=== PATIENT | female | born 1945 | race Caucasian/White ===

== ENCOUNTER 2017-05-11 09:45 | Outpatient (CLI) | payer MEDICARE, OTHER ==
[2017-05-11 12:21] LABS: #Basophils 0.1 thou/uL (0.0-0.2); #Eosinphils 0.1 thou/uL (0.0-0.7); #Lymphocytes 1.2 thou/uL (1.20-3.40); #Monocytes 0.5 thou/uL (0.11-0.59); #Neutrophils 2.9 thou/uL (1.40-6.50); %Basophils 1.1 % (0.0-1.0); %Eosinophils 2.8 % (0.0-10.0); %Lymphocytes 25.1 % (21.0-51.0); %Monocytes 10.9 % (0.0-10.0); Red Blood Cell (RBC) Count 4.46 mill/uL (4.20-5.40); White Blood Cell (WBC) Count 4.9 thou/uL (4.8-10.8)
[2017-05-11 12:54] LABS: ALT (SGPT) 15 U/L (8-55); AST (SGOT) 14 U/L (5-34); Alkaline Phosphatase 76 U/L (40-150); Anion Gap 8 mmol/L (10-20); BUN (Urea Nitrogen) 12 mg/dL (9.8-20.1); Bilirubin, Total 0.5 mg/dL (0.2-1.2); Calc. Creatinine Clearance 0 mL/min (70-130); Calcium 9.6 mg/dL (7.8-10.44); Carbon Dioxide 32 mmol/L (23-31); Chloride 104 mmol/L (98-107); Estimated GFR-MDRD 72; Globulin 3.4 g/dL (2.4-3.5); Protein, Total 7.4 g/dL (6.0-8.3)
== END 2017-05-11 09:46 | disposition home or self-care (01) ==
LOC: LABBT 09:45
PROVIDERS: ATTEND Surgery
DX: Z01.818 Encounter for other preprocedural examination (principal); S70.11XA Contusion of right thigh, initial encounter
CPT/HCPCS: 80053; 85025; 93005; 93010

== ENCOUNTER 2017-05-12 06:01 | Day surgery (SDC) | payer MEDICARE, OTHER ==
[2017-05-11 10:09] VITALS: BMI 36.6
[2017-05-12] MEDS ORDERED: Bupivacaine/Epinephrine 0.25% 30 ML VIAL ONE (06:29)
[2017-05-12] MEDS ORDERED: Levofloxacin 500 mg/D5W 100 ml Premix Bag ONE (06:50)
[2017-05-12] MEDS ORDERED: Fentanyl 100 MCG/2 ML VIAL ONE (07:06)
[2017-05-12] MEDS ORDERED: Midazolam HCl 2 mg/2 ml Vial ONE (07:06)
--- NOTE | 2017-05-12 07:22 | HP ---
CHIEF COMPLAINT: Chronic hematoma right leg. HISTORY: The patient is a 72-year-old female who fell down stairs in December. She developed a hemato ma in the lateral right thigh. It has persisted. No pain. She is here for evacuation. PAST MEDICAL HISTORY: Significant for hypertension, vitamin D deficiency, chronic headaches, mitral and tricuspid regurgitation. PAST SURGICAL HISTORY: Cholecystectomy in 1969, knee replacement bilateral in 2007, soft tissue chente t in 2010, colonoscopy in 2010. MEDICATIONS: Xalatan, vitamin D, flaxseed, calcium, vitamin D, B12, Zizol, Flonase, carvedilol. ALLERGIES: PENICILLIN, SULFA. FAMILY HISTORY: Father at 95. Mother at 79 of colon cancer. SOCIAL HISTORY: She is . No tobacco, occasional alcohol. PHYSICAL EXAMINATION: VITAL SIGNS: Height 5 foot 5, weight 221. Body mass index 36.7. Blood pressure 155/89, pulse 66. GENERAL: Well-developed, well-nourished female in no apparent distress. HEENT: Unremarkable. LUNGS: Clear. HEART: Regular rate and rhythm. ABDOMEN: Soft, nontender, good bowel sounds. EXTREMITIES: 8 x 10 cm, nontender mass lateral right thigh. ASSESSMENT: Persistent hematoma in thigh. PLAN: Incision and drainage with irrigation.
--- NOTE | 2017-05-12 11:37 | OP ---
DATE OF PROCEDURE: 05/12/2017 PREOPERATIVE DIAGNOSIS: Chronic hematoma of right lateral thigh. SURGEON: Pablo Zuniga M.D. PROCEDURE: Incision and drainage of subfascial hematoma. INDICATIONS: This is a 72-year-old female who fell and developed a hematoma of her right thigh. It persisted. She came in about 6 weeks ago and we had scheduled a drain to drain this thing, but for u nknown reasons, she waited until now. FINDINGS: There was probably like 70 mL of straw colored serous fluid within this subfascial fluid c ollection. PROCEDURE IN DETAIL: After informed consent was obtained, the patient was taken to the operating deni m and given general mask anesthesia, placed in the supine position. Her thigh was prepped and draped in the usual fashion. Local anesthesia infiltrated subcutaneously and deep. A linear incision was performed. The subcu divided sharply. She is morbidly obese and it was quite a ways down there, in fact, at first I started thinking that there was nothing there other than maybe a lipoma, so I aspira roldan deep and sure enough got the straw fluid, so I had to go beneath the fascia to get into this flui d collection. It was clear straw colored fluid about 70 mL removed. The cavity was thoroughly irrig ated with pulse production planner scheduler. I really did not see any residual thrombus. A drain was placed and broug ht out through a separate stab wound distally placed in the cavity. Hemostasis was assured. The fas jasmeet closed with a running 2-0 Vicryl. Subcutaneous reapproximated with interrupted 3-0 Vicryl and sk in closed with a running subcuticular 4-0 Vicryl. Dermabond applied. The patient tolerated the proc edure well and transferred to recovery in good condition. Sponge and needle count verified correct x 2.
[2017-05-12] MEDS ORDERED: Propofol 200 MG/20 ML VIAL ONE (14:44)
[2017-05-12] MEDS ORDERED: Ondansetron HCl/PF 4 MG/2 ML Vial ONE (14:44)
[2017-05-12] MEDS ORDERED: Ketorolac Tromethamine 30 MG/ML VIAL ONE (14:44)
== END 2017-05-12 10:10 | disposition home or self-care (01) ==
LOC: SDC 06:01
PROVIDERS: ATTEND Surgery
PROC: 0J9L3ZX Drainage of Right Upper Leg Subcutaneous Tissue and Fascia, Percutaneous Approach, Diagnostic (ICD-10-PCS; principal; 2017-05-12)
DX: T14.8XXA Other injury of unspecified body region, initial encounter (principal); Z88.2 Allergy status to sulfonamides; Z88.0 Allergy status to penicillin; Z90.49 Acquired absence of other specified parts of digestive tract; Z79.899 Other long term (current) drug therapy; Z68.36 Body mass index [BMI] 36.0-36.9, adult; E66.01 Morbid (severe) obesity due to excess calories; Z96.653 Presence of artificial knee joint, bilateral; Z98.890 Other specified postprocedural states; W10.9XXA Fall (on) (from) unspecified stairs and steps, initial encounter
CPT/HCPCS: J1885; J1956; J2250; J2405; J2704; J3010

== ENCOUNTER 2017-12-17 13:40 | Outpatient (CLI) | payer MEDICARE, OTHER | END 2017-12-17 13:41 | disposition home or self-care (01) | LOC: BICMAMMO 13:40 | PROVIDERS: ATTEND Family Medicine | DX: Z12.31 Encounter for screening mammogram for malignant neoplasm of breast (principal); R92.1 Mammographic calcification found on diagnostic imaging of breast | CPT/HCPCS: 77063; 77067 ==

== ENCOUNTER 2019-01-18 12:24 | Outpatient (CLI) | payer MEDICARE, OTHER ==
--- NOTE | 2019-01-18 13:51 | MMO ---
Bilateral MAMMO Bilat Screen [facility]. CLINICAL HISTORY: Patient is 73 years old and is seen for screening. The patient has no family history of breast cancer. The patient has no personal history of cancer. VIEWS: The views performed were: bilateral craniocaudal with tomosynthesis and bilateral mediolateral oblique with tomosynthesis. FILMS COMPARED: The present examination has been compared to prior imaging studies performed at [facility] on 10/04/2014, 10/29/2015, 11/11/2016 and 12/17/2017. MAMMOGRAM FINDINGS: There are scattered fibroglandular densities. Finding 1: There are stable benign appearing calcifications seen in both breasts. Finding 2: There are multiple stable focal asymmetries seen in both breasts. There are no suspicious masses, suspicious calcifications, or new areas of architectural distortion. IMPRESSION: THERE IS NO MAMMOGRAPHIC EVIDENCE OF MALIGNANCY. A ROUTINE FOLLOW-UP MAMMOGRAM IN 1 YEAR IS RECOMMENDED. THE RESULTS OF THIS EXAM WERE SENT TO THE PATIENT. ACR BI-RADS Category 2 - Benign finding MAMMOGRAPHY NOTE: 1. A negative mammogram report should not delay a biopsy if a dominant of clinically suspicious mass is present. 2. Approximately 10% to 15% of breast cancers are not detected by mammography. 3. Adenosis and dense breasts may obscure an underlying neoplasm. Reported by: TAMELA AVILEZ MD Electonically Signed: [id number]
== END 2019-01-18 12:25 | disposition home or self-care (01) ==
LOC: BICMAMMO 12:24
PROVIDERS: ATTEND Family Medicine
DX: Z12.31 Encounter for screening mammogram for malignant neoplasm of breast (principal)
CPT/HCPCS: 77063; 77067

== ENCOUNTER 2020-02-13 12:41 | Outpatient (CLI) | payer MEDICARE, OTHER ==
--- NOTE | 2020-02-13 13:24 | MMO ---
Bilateral MAMMO Bilat Screen [facility]. CLINICAL HISTORY: Patient is 74 years old and is seen for screening. The patient has no family history of breast cancer. The patient has no personal history of cancer. VIEWS: The views performed were: bilateral craniocaudal with tomosynthesis and bilateral mediolateral oblique with tomosynthesis. FILMS COMPARED: The present examination has been compared to prior imaging studies performed at [facility] on 10/29/2015, 11/11/2016, 12/17/2017 and 01/18/2019. This study has been interpreted with the assistance of computer-aided detection. MAMMOGRAM FINDINGS: There are scattered fibroglandular densities. Finding 1: There are multiple stable focal asymmetries seen in both breasts. Finding 2: There are stable benign appearing calcifications seen in both breasts. There are no suspicious masses, suspicious calcifications, or new areas of architectural distortion. IMPRESSION: THERE IS NO MAMMOGRAPHIC EVIDENCE OF MALIGNANCY. A ROUTINE FOLLOW-UP MAMMOGRAM IN 1 YEAR IS RECOMMENDED. THE RESULTS OF THIS EXAM WERE SENT TO THE PATIENT. ACR BI-RADS Category 2 - Benign finding MAMMOGRAPHY NOTE: 1. A negative mammogram report should not delay a biopsy if a dominant of clinically suspicious mass is present. 2. Approximately 10% to 15% of breast cancers are not detected by mammography. 3. Adenosis and dense breasts may obscure an underlying neoplasm. Reported by: TAMELA AVILEZ MD Electonically Signed: [id number]
== END 2020-02-13 12:42 | disposition home or self-care (01) ==
LOC: BICMAMMO 12:41
PROVIDERS: ATTEND Family Medicine
DX: Z12.31 Encounter for screening mammogram for malignant neoplasm of breast (principal)
CPT/HCPCS: 77063; 77067

== ENCOUNTER 2020-08-19 12:36 | Outpatient (CLI) | payer MEDICARE, OTHER | END 2020-08-19 12:37 | disposition home or self-care (01) | LOC: ULT 12:36 | PROVIDERS: ATTEND Family Medicine | DX: I34.0 Nonrheumatic mitral (valve) insufficiency (principal); I08.3 Combined rheumatic disorders of mitral, aortic and tricuspid valves | CPT/HCPCS: 93306 ==

== ENCOUNTER 2021-04-10 13:37 | Outpatient (CLI) | payer MEDICARE, OTHER | END 2021-04-10 13:38 | disposition home or self-care (01) | LOC: BICMAMMO 13:37 | PROVIDERS: ATTEND Family Medicine | DX: Z12.31 Encounter for screening mammogram for malignant neoplasm of breast (principal) | CPT/HCPCS: 77063; 77067 ==

== ENCOUNTER 2022-04-18 17:02 | Emergency (ER) | payer MEDICARE, OTHER ==
[2022-04-18] MEDS ORDERED: Dexamethasone 10 MG/ML VIAL ONE (17:45)
[2022-04-18 18:08] LABS: #Basophils 0.1 thou/uL (0.0-0.2); #Lymphocytes 1.3 thou/uL (1.20-3.40); #Monocytes 0.9 thou/uL (0.11-0.59); #Neutrophils 8.2 thou/uL (1.40-6.50); %Basophils 0.6 % (0.0-1.0); %Eosinophils 0.3 % (0.0-10.0); %Monocytes 8.3 % (0.0-10.0); %Neutrophils 78.7 % (42.0-75.0); Hemoglobin 13.8 g/dL (12.0-16.0); Mean Corpuscular HGB CONC 32.3 g/dL (32.0-36.0); Mean Corpuscular Hemoglobin 32.2 pg (27.0-31.0); Mean Corpuscular Volume 99.7 fl (78.0-98.0); Mean Platelet Volume 8.3 fL (7.4-10.4); Platelet Count 173 10x3/uL (130-400); RBC Distribution Width 11.9 % (11.5-14.5); Red Blood Cell (RBC) Count 4.28 mill/uL (4.20-5.40); White Blood Cell (WBC) Count 10.4 10x3/uL (4.8-10.8)
[2022-04-18 18:28] LABS: ALT (SGPT) 19 U/L (8-55); AST (SGOT) 16 U/L (5-34); Albumin 3.8 g/dL (3.4-4.8); Alkaline Phosphatase 62 U/L (40-110); Anion Gap 14 mmol/L (10-20); BUN (Urea Nitrogen) 15 mg/dL (9.8-20.1); Bilirubin, Total 0.4 mg/dL (0.2-1.2); Calc. Creatinine Clearance 0 mL/min (70-130); Calcium 8.6 mg/dL (7.8-10.44); Carbon Dioxide 28 mmol/L (23-31); Chloride 96 mmol/L (98-107); Estimated GFR 68; Globulin 2.8 g/dL (2.4-3.5); Glucose 120 mg/dL (83-110); Lipase 52 U/L (8-78); Potassium 3.5 mmol/L (3.5-5.1); Protein, Total 6.6 g/dL (5.8-8.1); Sodium 134 mmol/L (136-145)
== END 2022-04-18 18:32 | disposition home or self-care (01) ==
LOC: ERS 17:02
DX: U07.1 COVID-19 (principal); I10 Essential (primary) hypertension
CPT/HCPCS: 36415; 80053; 83690; 84484; 85025; 99284; J1100

== ENCOUNTER 2022-07-20 11:08 | Outpatient (CLI) | payer MEDICARE | END 2022-07-20 11:09 | disposition home or self-care (01) | LOC: BICMAMMO 11:08 | PROVIDERS: ATTEND Family Medicine | DX: Z12.31 Encounter for screening mammogram for malignant neoplasm of breast (principal) | CPT/HCPCS: 77063; 77067 ==

== ENCOUNTER 2023-03-23 13:13 | Outpatient (CLI) | payer MEDICARE | END 2023-03-23 13:14 | disposition home or self-care (01) | LOC: BICRAD 13:13 | PROVIDERS: ATTEND Family Medicine | DX: M54.2 Cervicalgia (principal); M47.812 Spondylosis without myelopathy or radiculopathy, cervical region | CPT/HCPCS: 36415; 72040; 80053; 80061; 82306 ==